=== PATIENT | male | born 1960 | race Caucasian/White ===

== ENCOUNTER 2016-12-08 05:21 | Observation (INO) | payer MEDICARE, OTHER ==
[2016-11-26 16:29] VITALS: BMI 29.0
[~2016-12-08] VITALS: Ht 170.2 cm; Wt 86.4 kg
[2016-12-08] VITALS (15 sets, daily range): BP systolic 115–145; BP diastolic 70–89; PULSE 54–95; TEMP 36.3–36.7; O2SAT 97–100; Ht 170.2 cm; Wt 86.4 kg
[~2016-12-08 05:21] MED LIST: CHOL1000 PO; MISCCAP80 PO; POTA99TA PO; VITA400C3 PO
[2016-12-08] MEDS ORDERED: PHEN-905 PO (05:46)
[2016-12-08] MEDS ORDERED: LACTATED RINGER'S 1000ML 1,000 ML IV SCH (06:00)
[2016-12-08] MEDS ORDERED: CeleBREX 200 MG CAP PO SCH (06:00)
[2016-12-08] MEDS ORDERED: CEFAZOLIN 2000 MG/60 ML D5W IV SCH (06:00)
[2016-12-08] MEDS ORDERED: PREGABALIN 75 MG CAP PO SCH (06:00)
[2016-12-08] MEDS ORDERED: REMIFENTANIL 1 MG VIAL ONE ×2 (06:34→06:35)
[2016-12-08] MEDS ORDERED: PROPOFOL IV EMULSION 10 MG/ML 100 ML VIAL IV ONE (06:35)
[2016-12-08] MEDS ORDERED: MIDAZOLAM HCL 1 MG/ML 2ML VIAL ONE (06:47)
[2016-12-08] MEDS ORDERED: FENTANYL CITRATE INJ 50 MCG/1 ML 2 ML VIAL ONE ×4 (06:47→10:33)
[2016-12-08] MEDS ORDERED: SUCCINYLCHOLINE CHLORIDE 20 MG/ML 10 ML VIAL IV ONE (06:47)
[2016-12-08] MEDS ORDERED: ONDANSETRON INJ 2 MG/ML 2 ML VIAL ONE (06:47)
[2016-12-08] MEDS ORDERED: DEXAMETHASONE SOD INJ 4 MG/ML VIAL ONE (06:47)
[2016-12-08] MEDS ORDERED: LIDOCAINE HCL 2% 2 ML VIAL (20MG/ML) ONE (06:47)
[2016-12-08] MEDS ORDERED: PROPOFOL IV EMULSION 10 MG/ML 20 ML VIAL IV ONE (06:47)
[2016-12-08] MEDS ORDERED: THROMBIN 5000 UNITS KIT ONE (06:51)
[2016-12-08] MEDS ORDERED: BACITRACIN 50000 UNIT VIAL ONE (06:51)
--- NOTE | 2016-12-08 07:20 | History and Physical ---
History & Physical Date Dec 08, 2016. Chief Complaint neck and L shoulder pain History of Present Illness The patient is a 56 year old male with complaints of above with numbness in left hand, balance disturbance, and symptoms of an early myelopathy that have been progressive. His MRI cspine demonstrated cervical stenosis with myelomalacia C4-7. He desires surgery. Past Medical/Surgical History HTN hi chol OA reflux hernia repair tonsillectomy Additional History Hepatic Disease: No Endocrine Disorder: No Kidney Disease: No Hypertension: Yes Heart Disease: No Bleeding Tendencies: No Infectious Diseases: No Allergies Coded Allergies: Calcium Carbonate (Verified Allergy, Intermediate, rash; pt believes it may be 'color related', 12/08/16) Metoclopramide (Verified Allergy, Mild, HIVES, 12/08/16) Rosuvastatin (Verified Adverse Reaction, Intermediate, joint pain, 12/08/16) Home Medications Scheduled Cholecalciferol (Vitamin D3), 2 TAB PO HS Yhgvexdfiiujh-Anaktymtdz-Cdjjd (Nyquil Severe Cold/Flu 5-6.25-10-325 mg/15Ml), 1 DOSE PO HS Potassium (Potassium), 1 TAB PO HS Probiotic Product (Probiotic), 1 CAP PO HS Vitamin E (Vitamin E 400 Iu), 400 INTER.UNIT PO HS Physical Examination Skin: warm/dry Eyes: normal inspection ENT: normal ENT inspection, pharynx normal Head: normocephalic, atraumatic Neck: supple, trachea midline Respiratory/Chest: lungs clear, no respiratory distress Cardiovascular: regular rate, rhythm Back: normal inspection Extremities: normal inspection, normal range of motion Neurologic/Psych: no motor/sensory deficits (decreased sensation L hand), alert , normal reflexes, oriented x 3
[2016-12-08] MEDS ORDERED: THROMBIN 5000 UNITS KIT TOP ONE (08:25)
[2016-12-08] MEDS ORDERED: FLOSEAL HEMOSTATIC MATRIX 5ML TOP ONE (08:25)
[2016-12-08] MEDS ORDERED: BACITRACIN 50000 UNIT VIAL IR ONE (08:25)
[2016-12-08] MEDS ORDERED: EpHEDrine SULFATE 50MG/5ML SYR ONE (08:30)
[2016-12-08] MEDS ORDERED: HYDROmorphone INJ 1 MG/ML SYR IV PRN (09:30)
[2016-12-08] MEDS ORDERED: ATROPINE SULFATE 0.1 MG/ML 5ML SYR IV PRN (09:30)
[2016-12-08] MEDS ORDERED: FENTANYL CITRATE INJ 50 MCG/1 ML 2 ML VIAL IV PRN (09:30)
[2016-12-08] MEDS ORDERED: ONDANSETRON INJ 2 MG/ML 2 ML VIAL IV PRN ×2 (09:30→10:00)
[2016-12-08] MEDS ORDERED: EpHEDrine SULFATE INJ 50 MG/ML AMP IV PRN (09:30)
--- NOTE | 2016-12-08 09:51 | [facility] Post Operative Brief Note ---
Immediate Operative Summary Operative Date Dec 08, 2016. Pre-Operative Diagnosis SPINAL STENOSIS Post-Operative Diagnosis SAME PREOP Procedure(s) Performed C4-7 ANTERIOR CERVICAL DISCECTOMY AND FUSION , WITH ALLOGRAFT AND LDR, SPINAL CORD MONITORING Surgeon DR. Sofia BLAKE Hop Picker Surgeon(s) Mayi GUERRERO PAC Estimated Blood Loss 100ml Findings dict Specimens NONE
[2016-12-08] MEDS ORDERED: ACETAMINOPHEN IV 1,000 MG in EMPTY BAG 0 ML IV PRN (10:00)
[2016-12-08] MEDS ORDERED: DEXAMETHASONE INJ 8 MG in SYRINGE 0 ML IV PRN (10:00)
[2016-12-08] MEDS ORDERED: RACEPINEPHRINE 2.25% NEBU SOLN 0.5 ML VIAL INH PRN (10:00)
[2016-12-08] MEDS ORDERED: NALOXONE HCL 0.4 MG/1 ML VIAL/CARP IV PRN (10:00)
[2016-12-08] MEDS ORDERED: LORAZEPAM INJ 0.5 MG in SYRINGE 0.75 ML IV PRN (10:00)
[2016-12-08] MEDS ORDERED: LORAZEPAM 0.5 MG TAB PO PRN (10:00)
[2016-12-08] MEDS ORDERED: OXYC-57 PO (10:01)
--- NOTE | 2016-12-08 10:02 | Discharge Instructions ---
Discharge Instructions Admission Reason for Admission: Cervical Spinal Stenosis Discharge Discharge Diagnosis / Problem: Cervical Stenosis Discharge Goals Goal(s): Decrease discomfort, Improve function, Increase independence Activity Recommendations Activity Limitations: as noted below Lifting Limitations: no more than 5 pounds Exercise/Sports Limitations: until after follow-up appointment May Resume Sexual Activity: after follow-up appointment Shower/Bathe: may shower/bathe in 3 days . Instructions / Follow-Up Instructions / Follow-Up ACTIVITY RECOMMENDATIONS: SELF CARE INSTRUCTIONS AFTER CERVICAL FUSIONS 1. No smoking. Smoking drastically decreases the chance of a solid fusion. 2. No bending, lifting more than 5 pounds, or twisting (roll like a log when turning in bed). 3. You may shower 3 days after surgery. Thoroughly dry wound. Do not soak in the tub. 4. Cervical collar: Must be worn at all times including sleeping. You may remove the brace only to bath, eat and if you are sitting in a recliner. 5. Please walk as much as you can for exercise. Gradually increase the distance that you walk as your endurance increases. SPECIAL CARE INSTRUCTIONS: VERY IMPORTANT TO READ AND REVIEW A. Do not take any anti-inflammatory medications (i.e. Indocin, Advil, Aspirin, Naprosyn, Aleve, Motrin, etc.) as these may inhibit the chance of a solid fusion. Tylenol is okay to take. B. Your surgical incision has been closed with a cosmetic suture under the skin that will dissolve in about 6 weeks. In 14 days, you can use a pair of clean scissors and cut the suture that is left outside of the skin at the ends of your incision. C. Complications are uncommon, but please contact us if you have any signs or symptoms of: 1. wound infection (fever higher than 102.5 degrees F, redness, separation of wound, drainage, or increasing pain from the incision) 2. blood clots in legs (pain, swelling, redness and warmth in legs) 3. urinary tract infection (fever higher than 102.5 degrees, burning upon urination or increased frequency of urination) 4. nerve problems (inability to walk on your toes or heels, numbness, loss of bowel or bladder control) 5. any other symptoms that concern you. D. Please call the office at if you have any concerns or questions about your operation or recovery. MANAGING PAIN AFTER SPINAL SURGERY 1. Narcotic medication is intended for short-term use and will be provided for surgical pain. Surgical pain usually lasts for a period of 4-6 weeks. Narcotic medication includes Percocet, Vicodin, Darvocet, Tylenol #3 or Lortab. 2. Longer-term pain is more appropriately treated with non-narcotic medication such as Tylenol ES. 3. Muscle spasm is not appropriately treated with narcotics. Muscle relaxers such as Soma, Flexeril or Skelaxin can be used along with Tylenol ES. 4. Remember that we all live with some "aches and pains". This is not unusual or uncommon after an injury or as we get older. 5. We will provide appropriate medication within the normal guidelines of their prescribed use. We will also be very cautious and aware of potential abuse and extended duration of patients' medication needs. 6. Please allow 2-3 days to process refills. Prescriptions will not be mailed but must be picked up at the office. FOLLOW UP VISIT: Keep your scheduled follow-up appointment. Any questions, please call the office at . Current Hospital Diet Patient's current hospital diet: Clear Liquid Diet Discharge Diet Recommended Diet: Regular Diet Procedures Procedures Performed: C4-7 ANTERIOR CERVICAL DISCECTOMY AND FUSION , WITH ALLOGRAFT AND LDR, SPINAL CORD MONITORING Pending Studies Studies pending at discharge: no Medical Emergencies . Who to Call and When: Medical Emergencies: If at any time you feel your situation is an emergency, please call 911 immediately. . Non-Emergent Contact Non-Emergency issues call your: Surgeon Call Non-Emergent contact if: temperature is above 101, your pain is not controlled, your pain is worsening, your pain is unusual for you, your pain is concerning you, wound has increased drainage, wound has increased redness, wound has increased pain, you have any medication questions . "Provider Documentation" section prepared by Chance Martinez. VTE Core Measure Inpt VTE Proph given/why not?: Vahid Morton
--- NOTE | 2016-12-08 10:14 | DIAGNOSTIC IMAGING REPORT ---
INTRAOPERATIVE RADIOGRAPHS CLINICAL HISTORY: C4-C7 spinal fusion. Fluoroscopy time: 17 seconds. FINDINGS: 5 spot fluoroscopic views of the cervical spine are presented. An endotracheal tube is in place. There is evidence of discectomy at C4-C5 and C5-C6 with anterior fusion at C4-C5, C5-C6, and C6-C7. The orthopedic hardware is grossly intact. A surgical drain is noted on the final images. IMPRESSION: Intraoperative images from C4 -C7 spinal fusion as above. Electronically signed by: Kal Perez M.D. 12/08/2016 10:12 AM Dictated Date/Time: 12/08/2016 10:11 AM
[2016-12-08] MEDS ORDERED: PHENYLEPHRINE 100MCG/ML 5ML SYR ONE (10:31)
[2016-12-08] MEDS ORDERED: NURSING VERBAL MED ORDER ONE (10:40)
[2016-12-08] MEDS ORDERED: MEPERIDINE HCL 25 MG/ML CARP ONE (10:46)
--- NOTE | 2016-12-08 11:39 | OPERATIVE REPORT ---
DATE OF OPERATION: 12/08/2016 PREOPERATIVE DIAGNOSES: 1. Cervical stenosis C4-C5, C5-C6 and C6-C7. 2. Cervical disk degeneration C4-C5, C5-C6 and C6-C7. 3. Cervical myelopathy. POSTOPERATIVE DIAGNOSIS: Same. PROCEDURES: 1. Anterior cervical discectomy and fusion and application of PEEK intervertebral spacer with local autograft and DBM putty C4-C5 with LDR GALLITO-C cage. 2. Anterior cervical discectomy and fusion with application of PEEK intervertebral spacer with local autograft and DBM putty C5-C6. 3. Anterior cervical discectomy and fusion and application of PEEK intervertebral spacer with local autograft and DBM putty C6-C7. 4. Anterior cervical instrumentation C4-C5, C5-C6 and C6-C7 with LDR anterior cervical blade placed. SURGEON: Dr. Rock. ARCHITECTURE INTERN: Chance Martinez PA-C. Please note he participated in all portions of the procedure and was critical for performance of the procedure, participated with positioning, prepping, draping, retraction, and wound closure. ANESTHESIA: General endotracheal anesthesia. COMPLICATIONS: None. ESTIMATED BLOOD LOSS: Minimal. OPERATION AND FINDINGS: PROCEDURE: After identification of patient and operative level, he was brought to the OR where he underwent induction of general anesthesia. He was then positioned supine on the [facility] OR table with Vasile horseshoe drapery head former. Arms tucked at sides and well padded. Shoulders were taped distally. Anterior neck was sterilely prepped and draped in usual fashion. Antibiotics were administered. Time-out was performed. Level was confirmed and transverse skin incision was made on the right side of the neck at the level of the cricoid cartilage. I divided the platysma in line with the incision and then performed routine anterior cervical exposure from the right side. Blunt dissection was used. I identified presumptive disc spaces and marked them with electrocautery and fluoroscopy. I then mobilized longus colli and placed a self-retaining cervical retractor deep to them. Bluff pins were placed in the body of C5 and C7. Distraction was applied across the pins and level was reconfirmed with x-ray. Spinal cord monitoring signals were not changed from baseline. I then did complete discectomies at C5-C6 and C6-C7, taking down the posterior osteophytes with a mary grace, removing the posterior annulus at the PLL and performed foraminotomies as necessary. I did a wide decompression and palpated the nerve roots C5-C6 and C6-C7 were decompressed bilaterally. I then decorticated the endplates with a high speed mary grace at C5-C6, C6-C7, determined graft size with trial sizers and inserted an LDR PEEK cage with local bone and DBM putty. There were tamped into position and Bluff distraction was released. I then placed the blades into the bodies of C6 from each level. I removed the Bluff distraction pins at C7 and then finished placing the blades at C5-C6 and C6-C7. I removed the insertion handles and then removed the self-retaining cervical retractor and placed Bluff pins in the body of C4 and C5. I then did a complete discectomy at this level. I removed the posterior osteophytes, posterior annulus, PLL and confirmed nerve roots decompressed and then decorticated the endplates with a high speed. I determined graft size again with trial sizers and filled the PEEK cage with local bone and DBM putty, tamped it into position and placed the blade plates into the bodies of C4 and C5. I then obtained final x-rays, irrigated with bacitracin solution, confirmed hemostasis and closed over a small round drain in layered fashion. All sponge and needle counts were correct at the end of the case. I attest to the content of the Intraoperative Record and any orders documented therein. Any exceptio ns are noted below.
--- NOTE | 2016-12-08 11:45 | Anesthesiology Progress Note ---
Anesthesia Post Op Note Date & Time Dec 08, 2016 at 11:45 Vital Signs Pain Intensity: 4 Vital Signs Past 12 Hours Date Time Temp Pulse Resp B/P Pulse Ox O2 Delivery O2 Flow Rate FiO2 12/08/16 11:33 133/97 12/08/16 11:32 71 17 98 12/08/16 11:32 71 17 12/08/16 11:29 122/91 12/08/16 11:27 71 17 12/08/16 11:27 73 17 99 12/08/16 11:23 117/83 12/08/16 11:22 60 5 12/08/16 11:22 59 5 99 12/08/16 11:21 71 16 12/08/16 11:21 72 16 97 12/08/16 11:19 117/78 12/08/16 11:16 64 13 12/08/16 11:16 67 13 99 12/08/16 11:13 128/81 12/08/16 11:11 53 12 99 12/08/16 11:11 55 12 12/08/16 11:10 119/86 12/08/16 11:08 53/46 12/08/16 11:06 62 16 12/08/16 11:06 69 16 98 12/08/16 11:05 74 13 99 12/08/16 11:05 75 13 12/08/16 11:04 116/77 12/08/16 11:00 61 12 100 12/08/16 11:00 61 12 12/08/16 10:59 123/73 12/08/16 10:55 71 20 100 12/08/16 10:55 70 20 12/08/16 10:54 113/76 12/08/16 10:53 106/77 12/08/16 10:50 69 14 100 12/08/16 10:50 69 14 12/08/16 10:49 106/77 12/08/16 10:45 89 21 97/88 100 12/08/16 10:45 86 21 12/08/16 10:40 80 22 100 12/08/16 10:40 79 22 12/08/16 10:38 100/72 12/08/16 10:35 88 15 12/08/16 10:35 88 15 100 12/08/16 10:33 123/67 12/08/16 10:30 79 16 102/73 100 2/7/17 10:30 81 16 12/08/16 10:25 89 16 98 12/08/16 10:25 36.2 88 16 120/89 100 Mask 10 12/08/16 10:25 90 16 12/08/16 05:51 36.5 54 18 130/89 98 Room Air Notes Mental Status: alert / awake / arousable, participated in evaluation Pt Amnestic to Procedure: Yes Nausea / Vomiting: adequately controlled Pain: adequately controlled Airway Patency, RR, SpO2: stable & adequate BP & HR: stable & adequate Hydration State: stable & adequate Anesthetic Complications: no major complications apparent
[2016-12-08] MEDS ORDERED: DiphenhydrAMINE HCL 50 MG/ML VIAL ONE (11:54)
[2016-12-08] MEDS ORDERED: RANITIDINE HCL 25 MG/ML INJ ONE (11:54)
[2016-12-08] MEDS: SODIUM CHLORIDE 0.9% 1000ML 1,000 ML IV SCH (13:20)
[2016-12-08] MEDS: OXYCODONE HCL IR 5 MG TAB (IMMEDIATE RELEASE) PO PRN ×3 (13:21→20:25)
[2016-12-08] MEDS ORDERED: IV FLUIDS COMPLETED PRN (13:45)
[2016-12-08] MEDS ORDERED: SCOPOLAMINE 1.5 MG TDSY TD SCH (14:00)
[2016-12-08] MEDS ORDERED: COUGH DROP (SUGAR FREE) LOZ 24 LOZ/1 BOX ONE (15:49)
[2016-12-08] MEDS: CHECK SCOPOLAMINE PATCH PLACEMENT SCH (15:56)
[2016-12-08] MEDS: DEXAMETHASONE INJ 6 MG in SYRINGE 0 ML IV SCH (15:57)
[2016-12-08] MEDS ORDERED: NURSING DECISION MEDICATION ORDER SCH (16:00)
[2016-12-08] MEDS: CEFAZOLIN IV 1,000 MG in DEXTROSE 5% 50ML 50 ML IV SCH (16:00)
[2016-12-08] MEDS ORDERED: COUGH DROP (SUGAR FREE) LOZ 24 LOZ/1 BOX PO PRN (16:00)
[2016-12-08] MEDS: HYDROmorphone INJ 1 MG/ML SYR IV PRN (21:43)
[2016-12-09] VITALS (10 sets, daily range): BP systolic 109–132; BP diastolic 68–79; PULSE 52–69; TEMP 36.4–36.6; O2SAT 97–100
[2016-12-09] MEDS: SODIUM CHLORIDE 0.9% 1000ML 1,000 ML IV SCH (00:16)
[2016-12-09] MEDS: DEXAMETHASONE INJ 6 MG in SYRINGE 0 ML IV SCH ×2 (00:16→08:03)
[2016-12-09] MEDS: CEFAZOLIN IV 1,000 MG in DEXTROSE 5% 50ML 50 ML IV SCH ×2 (00:17→08:03)
[2016-12-09] MEDS: HYDROmorphone INJ 1 MG/ML SYR IV PRN (01:42)
[2016-12-09] MEDS: OXYCODONE HCL IR 5 MG TAB (IMMEDIATE RELEASE) PO PRN ×2 (06:22→11:42)
[2016-12-09] MEDS: CHECK SCOPOLAMINE PATCH PLACEMENT SCH ×2 (08:00)
--- NOTE | 2016-12-09 09:39 | Orthopedic Progress Note ---
Orthopedic Progress Note Date of Service Dec 09, 2016. Subjective Reports: feeling well, pain controlled w PO medications, Denies: SOB, calf pain , chest pain, complaints, light headedness, nausea / vomiting Additional Notes: Doing well, no SOB or difficulty swallowing, resolution of numbness noted, no arm pain Objective calves soft nontender, N/V intact, capillary refill less than 2 sec., dressing C /D/I, A&O x3, toes mobile, hemovac drainage Date Time Temp Pulse Resp B/P Pulse Ox O2 Delivery O2 Flow Rate FiO2 12/09/16 07:43 60 16 98 Room Air 12/09/16 07:25 36.5 62 14 117/73 98 Room Air 12/09/16 07:00 Room Air 12/09/16 06:25 36.5 61 20 132/76 99 Room Air 12/09/16 04:26 36.6 66 20 118/75 100 Nasal Cannula 2.0 Humidified Oxygen 12/09/16 03:50 52 14 97 Nasal Cannula 2.0 12/09/16 02:13 36.4 60 20 129/79 99 Nasal Cannula 2.0 Humidified Oxygen 12/09/16 00:20 36.5 69 18 109/68 99 Nasal Cannula 2.0 Humidified Oxygen 12/08/16 23:47 58 14 97 Nasal Cannula 2.0 12/08/16 22:25 36.4 62 20 130/81 99 Nasal Cannula 2.0 Humidified Oxygen 12/08/16 21:21 36.5 71 18 116/78 98 Nasal Cannula 2.0 12/08/16 20:00 36.5 68 18 135/72 99 Nasal Cannula 2.0 Humidified Oxygen 12/08/16 20:00 Nasal Cannula 2.0 Humidified Oxygen 12/08/16 19:58 78 16 97 Room Air 12/08/16 19:23 36.6 68 18 145/78 98 Nasal Cannula 3.0 12/08/16 17:07 36.6 74 18 131/83 99 Nasal Cannula 3.0 12/08/16 15:40 82 14 100 Nasal Cannula 3.0 12/08/16 15:08 36.3 73 18 120/84 99 Nasal Cannula 3.0 12/08/16 14:35 87 16 99 Nasal Cannula 4.0 12/08/16 14:15 71 14 115/80 100 Nasal Cannula 4.0 Humidified Oxygen 12/08/16 13:17 95 16 135/83 99 Nasal Cannula 4.0 12/08/16 12:43 80 18 116/76 98 Nasal Cannula 4.0 Humidified Oxygen 12/08/16 12:10 Nasal Cannula 4.0 12/08/16 12:10 36.7 58 18 124/70 99 Nasal Cannula 4.0 12/08/16 12:10 99 Nasal Cannula 4.0 12/08/16 11:49 63 15 12/08/16 11:49 62 15 97 12/08/16 11:48 118/80 12/08/16 11:44 54 16 12/08/16 11:44 53 16 99 12/08/16 11:43 123/84 12/08/16 11:39 67 18 12/08/16 11:39 67 18 98 12/08/16 11:38 133/92 12/08/16 11:34 72 16 12/08/16 11:34 71 16 98 12/08/16 11:33 133/97 12/08/16 11:32 71 17 98 12/08/16 11:32 71 17 12/08/16 11:29 122/91 12/08/16 11:27 71 17 12/08/16 11:27 73 17 99 12/08/16 11:23 117/83 12/08/16 11:22 60 5 12/08/16 11:22 59 5 99 12/08/16 11:21 71 16 12/08/16 11:21 72 16 97 12/08/16 11:19 117/78 12/08/16 11:16 64 13 12/08/16 11:16 67 13 99 12/08/16 11:13 128/81 12/08/16 11:11 53 12 99 12/08/16 11:11 55 12 12/08/16 11:10 119/86 12/08/16 11:08 53/46 12/08/16 11:06 62 16 12/08/16 11:06 69 16 98 12/08/16 11:05 74 13 99 12/08/16 11:05 75 13 12/08/16 11:04 116/77 12/08/16 11:00 61 12 100 12/08/16 11:00 61 12 12/08/16 10:59 123/73 12/08/16 10:55 71 20 100 12/08/16 10:55 70 20 12/08/16 10:54 113/76 12/08/16 10:53 106/77 12/08/16 10:50 69 14 100 12/08/16 10:50 69 14 12/08/16 10:49 106/77 12/08/16 10:45 89 21 97/88 100 12/08/16 10:45 86 21 12/08/16 10:40 80 22 100 12/08/16 10:40 79 22 12/08/16 10:38 100/72 12/08/16 10:35 88 15 12/08/16 10:35 88 15 100 12/08/16 10:33 123/67 12/08/16 10:30 79 16 102/73 100 12/08/16 10:30 81 16 12/08/16 10:25 89 16 98 12/08/16 10:25 36.2 88 16 120/89 100 Mask 10 12/08/16 10:25 90 16 Assessment & Plan Assessment: s/p cervical fusion Plan: Progress diet, change dressing and d/c drain then discharge home
--- NOTE | 2016-12-18 09:11 | DISCHARGE SUMMARY ---
PRINCIPAL DIAGNOSES: Cervical stenosis C4-C5, C5-C6, C6-C7 with disc degeneration at these associated levels and cervical myelopathy. POSTOPERATIVE DIAGNOSES: Same. PROCEDURE: Cervical ACDF C4-C7. SURGEON: Dr. Ebenezer Rock. COOPERATIVE EDUCATION DIRECTOR: Chance Martinez PA-C. HISTORY OF PRESENT ILLNESS: Please refer to EMR. HOSPITAL COURSE: On 12/08/2016, Mr. Wolfe was admitted to [facility] with the above diagnoses and he was taken to preoperative holding where he was identified, evaluated, and cleared for surgical procedure. He was transported to the operating room, introduced with general endotracheal anesthesia. Sterile conditions were set and he successfully underwent the above procedure without complication or issue. He was awakened in stable and satisfactory condition, placed in a hard collar immobilization, transported to postoperative recovery where his vital signs and pain were monitored and managed. He remained medically stable and was taken to the orthopedic floor for continued postoperative care. Throughout the night, he had no difficulty breathing or swallowing. He remained in immobilization and KAYDEN remained functioning. He noted resolution of preoperative symptoms. He had no difficulties or postoperative complications. He was evaluated the next morning on 12/09/2016 and indicated for return home. On this date, he was discharged from [facility]. DISPOSITION: Home. DISPOSITION CONDITION: Stable. NOTED COMPLICATIONS OR ISSUES: Zero. DISCHARGE INSTRUCTIONS: Please refer to EMR.
== END 2016-12-09 12:21 | disposition home or self-care (01) ==
LOC: ENRESERVDT → ENRESERVTM → C.ACU 05:21 → C.3E 09:53
PROVIDERS: ADMIT Orthopaedic Surgery Orthopaedic Surgery of the Spine; ATTEND Orthopaedic Surgery Orthopaedic Surgery of the Spine
DX: M50.021 Cervical disc disorder at C4-C5 level with myelopathy (principal); M50.022 Cervical disc disorder at C5-C6 level with myelopathy; M50.023 Cervical disc disorder at C6-C7 level with myelopathy; I10 Essential (primary) hypertension; E78.00 Pure hypercholesterolemia, unspecified; K21.9 Gastro-esophageal reflux disease without esophagitis; M19.90 Unspecified osteoarthritis, unspecified site

== ENCOUNTER 2022-12-29 06:49 | Inpatient (IN) ==
--- NOTE | 2022-12-10 10:19 | PAT Medication Instructions ---
Medication Instructions Date of Service December 10, 2022 Home Medications betamethasone dipropionate 0.05 % topical cream 1 applic topical BID PRN sores calcium 600 mg capsule 600 mg PO QAM cholecalciferol (vitamin D3) 125 mcg (5,000 unit) tablet (Vitamin D3) 125 mcg PO QAM lisinopril 20 mg tablet 20 mg PO QAM loperamide 2 mg capsule 2 mg PO Q4H PRN diarrhea magnesium 200 mg tablet 600 mg PO QAM potassium 99 mg tablet 99 mg PO QAM sertraline 100 mg tablet 100 mg PO HS zinc 50 mg tablet 50 mg PO DAILY STOP taking 24 hours before surgery betamethasone dipropionate 0.05 % topical cream 1 applic topical BID PRN sores DO NOT take the morning of surgery calcium 600 mg capsule 600 mg PO QAM cholecalciferol (vitamin D3) 125 mcg (5,000 unit) tablet (Vitamin D3) 125 mcg PO QAM lisinopril 20 mg tablet 20 mg PO QAM loperamide 2 mg capsule 2 mg PO Q4H PRN diarhea magnesium 200 mg tablet 600 mg PO QAM potassium 99 mg tablet 99 mg PO QAM zinc 50 mg tablet 50 mg PO DAILY Take evening before surgery loperamide 2 mg capsule 2 mg PO Q4H PRN diarrhea (if needed) sertraline 100 mg tablet 100 mg PO HS Other Notes If you have any questions please call us at [phone] or [phone] or [phone] or [phone]
--- NOTE | 2022-12-15 12:00 | Anesthesiology Consultation ---
Date of Service December 15, 2022 Assessment & Plan (1) Encounter for pre-operative examination: COVID screening: Per assessment on 12/15: No known COVID-19 positive contacts or current COVID-19 related symptoms. Travel screen negative. At surgeon discretion if preop Covid testing being done. Chart Review Chart Review: Acceptable Risk for Surgery and Patient seen in Pre Admission Testing History Surgery Operation Date: 12/29/22 12:55 Proposed Procedures p C3-C4 Anterior Cervical Discectomy and Fusion, Spinal Cord Monitoring - Herve Wolfe DO Height/Weight Height: 5 ft 8 in Weight: 98.5 kg Allergies Allergy/AdvReac Type Severity Reaction Status Date / Time calcium carbonate Allergy Intermediate RASH Verified 12/15/22 12:14 metoclopramide Allergy Mild HIVES Verified 12/09/22 13:05 red dye Allergy RASH Verified 12/15/22 12:14 (POSSIBLY R/T RED DYE) rosuvastatin AdvReac Intermediate JOINT PAIN Verified 12/15/22 12:00 Medications Home Medications Medication Instructions Recorded Confirmed Last Taken betamethasone dipropionate 0.05 % 1 applic topical BID PRN sores. 12/09/22 12/09/22 Unknown topical cream calcium 600 mg capsule 600 mg PO QAM 12/09/22 12/09/22 Unknown cholecalciferol (vitamin D3) 125 125 mcg PO QAM 12/09/22 12/09/22 Unknown mcg (5,000 unit) tablet (Vitamin D3) lisinopril 20 mg tablet 20 mg PO QAM 12/09/22 12/09/22 Unknown loperamide 2 mg capsule 2 mg PO Q4H PRN diarhea 12/09/22 12/09/22 Unknown magnesium 200 mg tablet 600 mg PO QAM 12/09/22 12/09/22 Unknown potassium 99 mg tablet 99 mg PO QAM 12/09/22 12/09/22 Unknown sertraline 100 mg tablet 100 mg PO HS 12/09/22 12/09/22 Unknown zinc 50 mg tablet 50 mg PO DAILY 12/09/22 12/09/22 Unknown Past Medical History Medical History Anxiety Chronic back pain DDD (degenerative disc disease), cervical Hypertension IBS (irritable bowel syndrome) Osteoarthritis Exercise / Class Metabolic Activity III < 4 Walking/Shop/Light housework Past Surgical History Surgical History History of nasal surgery History of tonsillectomy and adenoidectomy Hx of appendectomy Hx of cardiac cath 20+ years ago (in [place])- no significant findings, told symptoms r/t anxiety Hx of colonoscopy Hx of fusion of cervical spine C4-7 Hx of umbilical hernia repair Past Anesthesia History No Hx of Anesthesia Complications and No Family Hx of Anesthesia Complications History of PONV No Hx of PONV and No Hx of Motion Sickness Social History Smoking Status: Current some day smoker Smoking cigarettes per day: Occasional use with ETOH Do You Dip or Chew Tobacco: Yes (2/3 can a day- advised none DOS) Hx Alcohol Use: Yes Alcohol type: beer alcohol intake frequency: a few times a week Hx Substance Use: Yes Substance Use Type Other:: Cannibis occasional use Review of Systems Patient denies chest pain, shortness of breath, fever, chills, cough, wheezing, palpitations. Physical Exam Vital Signs VITALS BP 162/94 P 63 TEMP 98.1 SP02 98%RA RESP 16 PHYSICAL Significantly decreased cervical extension range of motion. Full TMJ range of motion. TMD 3.5 finger breaths Mallampati Score 2 Dentition: several missing sides/molars Lungs: clear throughout to auscultation Cardiac: regular rate and rhythm, no murmurs noted Spine: normal Carotid arteries: negative bruit Extremities: no edema Lab Results Anesthesia Preop Results Results Anesthesia Widget: WBC 5.98 K/ul (4.8-10.8) 12/15/22 Hgb 14.3 g/dl (14.0-18.0) 12/15/22 Hct 40.5 % (42.0-52.0) L 12/15/22 Plt 286 K/uL (130-400) 12/15/22 Na 141 mmol/L (136-145) 12/15/22 K 4.2 mmol/L (3.5-5.1) 12/15/22 Cl 108 mmol/L (98-107) H 12/15/22 CO2 28 mmol/L (21-32) 12/15/22 BUN 14 mg/dl (6-23) 12/15/22 Creat 0.89 mg/dl (0.6-1.4) 12/15/22 Glucose Level 92 mg/dl (70-99(Fasting)) 12/15/22 PT 11.4 Seconds (9.0-12.0) 12/15/22 PTT 28.4 Seconds (21.0-31.0) 12/15/22 INR 1.1 (0.9-1.1) 12/15/22 Urine Color Yellow 12/15/22 Urine Appearance Clear (Clear) 12/15/22 Urine pH 5.5 (4.5-7.5) 12/15/22 Urine Specific [place] 1.021 (1.000-1.030) 12/15/22 Urine Protein Negative (Negative) 12/15/22 Urine Glucose (UA) Negative (Negative) 12/15/22 Urine Ketones Negative (Negative) 12/15/22 Urine Blood Negative (Negative) 12/15/22 Urine Nitrite Negative (Negative) 12/15/22 Urine Bilirubin Negative (Negative) 12/15/22 Urine Urobilinogen Negative (Negative) 12/15/22 Urine Leukocyte Esterase Negative (Negative) 12/15/22 Blood Type A Positive 12/15/22 Antibody Screen NEGATIVE 12/15/22 Testing Electrocardiogram Date: 12/15/22 NSR at 63bpm. Chest X-Ray Date: 12/15/22 FINDINGS: No lines and tubes are seen. Calcified aortic knob is seen. The lungs are clear. No evidence of pleural effusion or pneumothorax. IMPRESSION: No acute chest disease. COVID-19 Risk Screen Screening Information COVID-19 Screen Date: 12/15/22 Exposure 21 Days Family/Household +COVID Last 21 Days: No Exposure 10 Days Any COVID Exposure Last 10 Days: No Symptoms Last 10 Days Experienced COVID Sx Last 10 Days: No + COVID 0-90 Days COVID + in Last 0-90 Days: No
[~2022-12-29 06:49] MED LIST changes: +ACETAMINOPHEN 500 MG TAB PO SCH; -CHOL1000 PO; +CeleBREX 200 MG CAP PO SCH; +GABAPENTIN 600 MG DOSE PO SCH; +LR 15ML/HR IV SCH; -MISCCAP80 PO; -POTA99TA PO; -VITA400C3 PO; +ceFAZolin 2000MG 2,000 MG/15 ML SYR IV SCH
[2022-12-29] MEDS ORDERED: fentaNYL citrate PF 100 MCG/2 ML VIAL ONE (07:08)
[2022-12-29] MEDS ORDERED: PROPOFOL IV EMULSION 10 MG/ML 20 ML VIAL IV ONE (07:08)
[2022-12-29] MEDS ORDERED: SUCCINYLCHOLINE CHLORIDE 20 MG/ML 10 ML VIAL IV ONE (07:08)
[2022-12-29] MEDS ORDERED: MIDAZOLAM HCL 1 MG/ML 2ML VIAL ONE (07:08)
[2022-12-29] MEDS ORDERED: DEXAMETHASONE SOD INJ 4 MG/ML VIAL ONE (07:08)
[2022-12-29] MEDS ORDERED: LIDOCAINE 2% MPF LOCAL 5 ML VIAL INFIL ONE (07:08)
[2022-12-29] MEDS ORDERED: PROPOFOL IV EMULSION 10 MG/ML 100 ML VIAL IV ONE (07:18)
--- NOTE | 2022-12-29 07:28 | History & Physical Bridge Note ---
Date of Service December 29, 2022 History & Physical Bridge Note I have examined the patient, reviewed the History & Physical and in the interval since the performance of the History & Physical I have noted the following changes of clinical significance: no changes noted
--- NOTE | 2022-12-29 07:29 | History & Physical Report ---
Date of Service December 29, 2022 Assessment & Plan (1) DDD (degenerative disc disease), cervical: Plan: Anterior cervical discectomy and fusion C3-C4 History of Present Illness Chief Complaint: Neck and arm pain Primary Care Provider: Kelly Valle MD This is a 62-year-old male with chronic persistent neck and arm symptoms with failed course of nonoperative care is here for surgical intervention. Allergies Allergy/AdvReac Type Severity Reaction Status Date / Time calcium carbonate Allergy Intermediate RASH Verified 12/29/22 07:06 metoclopramide Allergy Mild HIVES Verified 12/29/22 07:06 red dye Allergy RASH Verified 12/29/22 07:06 (POSSIBLY R/T RED DYE) rosuvastatin AdvReac Intermediate JOINT PAIN Verified 12/29/22 07:06 Home Medications Medication Instructions Recorded Confirmed Type betamethasone dipropionate 0.05 % 1 applic topical BID PRN sores. 12/09/22 12/29/22 History topical cream calcium 600 mg capsule 600 mg PO QAM 12/09/22 12/29/22 History cholecalciferol (vitamin D3) 125 125 mcg PO QAM 12/09/22 12/29/22 History mcg (5,000 unit) tablet (Vitamin D3) lisinopril 20 mg tablet 20 mg PO QAM 12/09/22 12/29/22 History loperamide 2 mg capsule 2 mg PO Q4H PRN diarhea 12/09/22 12/29/22 History magnesium 200 mg tablet 600 mg PO QAM 12/09/22 12/29/22 History potassium 99 mg tablet 99 mg PO QAM 12/09/22 12/29/22 History sertraline 100 mg tablet 100 mg PO HS 12/09/22 12/29/22 History zinc 50 mg tablet 50 mg PO DAILY 12/09/22 12/29/22 History Past Med/Surg History Medical History Anxiety Chronic back pain DDD (degenerative disc disease), cervical Hypertension IBS (irritable bowel syndrome) Osteoarthritis Surgical History History of nasal surgery History of tonsillectomy and adenoidectomy Hx of appendectomy Hx of cardiac cath 20+ years ago (in [place])- no significant findings, told symptoms r/t anxiety Hx of colonoscopy Hx of fusion of cervical spine C4-7 Hx of umbilical hernia repair Social History Smoking Status: Current some day smoker Cigarettes Per Day: Occasional use with ETOH; Second Hand Exposure: No; Do You Dip or Chew Tobacco: Yes (2/3 can a day- advised none DOS); Tobacco Cessation Education Requested by Patient: No Hx Alcohol Use: Yes Alcohol type: beer Hx Substance Use: Yes Substance Use Type Other:: Cannibis occasional use Preferred Language: Monegasque Communication Ability: Effective Alarm Signaler Required: No Beliefs That Will Affect Care: None Current Living Situation: Spouse Other Information That Helps Us Care for You: No Feels Safe at Home: Yes Safety Concerns: Feels Safe At This Time Physical Exam Physical Exam: Patient is alert and oriented Heart regular rhythm Lungs clear
[2022-12-29] MEDS ORDERED: ceFAZolin 330 MG/ML 1 GM VIAL ONE (07:31)
--- NOTE | 2022-12-29 07:53 | Anesthesiology Consultation ---
Date of Service December 29, 2022 Assessment & Plan Chart Review Chart Review: Acceptable Risk for Surgery and Patient NOT seen in Pre Admission Testing Consults Requested none ASA ASA3 Proposed Anesthesia Anesthesia Type: General Risk / Benefits Reviewed With: PT / POA / Parent / Guardian, Accepts Plan and Informed Consent Obtained History Surgery Operation Date: 12/29/22 07:45 Proposed Procedures p C3-C4 Anterior Cervical Discectomy and Fusion, Spinal Cord Monitoring - Herve Wolfe DO Height/Weight Height: 5 ft 7 in Weight: 98.571 kg Allergies Allergy/AdvReac Type Severity Reaction Status Date / Time calcium carbonate Allergy Intermediate RASH Verified 12/29/22 07:06 metoclopramide Allergy Mild HIVES Verified 12/29/22 07:06 red dye Allergy RASH Verified 12/29/22 07:06 (POSSIBLY R/T RED DYE) rosuvastatin AdvReac Intermediate JOINT PAIN Verified 12/29/22 07:06 Medications Home Medications Medication Instructions Recorded Confirmed Last Taken betamethasone dipropionate 0.05 % 1 applic topical BID PRN sores. 12/09/22 12/29/22 12/22/22 19:00 topical cream calcium 600 mg capsule 600 mg PO QAM 12/09/22 12/29/22 12/08/22 19:00 cholecalciferol (vitamin D3) 125 125 mcg PO QAM 12/09/22 12/29/22 12/08/22 19:00 mcg (5,000 unit) tablet (Vitamin D3) lisinopril 20 mg tablet 20 mg PO QAM 12/09/22 12/29/22 12/28/22 06:00 loperamide 2 mg capsule 2 mg PO Q4H PRN diarhea 12/09/22 12/29/22 12/26/22 08:00 magnesium 200 mg tablet 600 mg PO QAM 12/09/22 12/29/22 Unknown potassium 99 mg tablet 99 mg PO QAM 12/09/22 12/29/22 Unknown sertraline 100 mg tablet 100 mg PO HS 12/09/22 12/29/22 12/27/22 19:00 zinc 50 mg tablet 50 mg PO DAILY 12/09/22 12/29/22 Unknown Active Medications Generic Name Dose Route Start Last Admin Trade Name Freq PRN Reason Stop Dose Admin Acetaminophen 1,000 mg 12/29/22 06:00 12/29/22 07:37 Acetaminophen 500 Mg Tab PO 12/29/22 18:00 1,000 mg PREOP LUL Administration Celecoxib 200 mg 12/29/22 06:00 12/29/22 07:37 Celebrex 200 Mg Cap PO 12/29/22 18:00 200 mg PREOP LUL Administration Gabapentin 600 mg 12/29/22 06:00 12/29/22 07:36 Gabapentin 600 Mg Dose PO 12/29/22 18:00 600 mg PREOP LUL Administration NPO Date Last Intake of Fluids: 12/28/22 Time Last Intake of Fluids: 22:00 Date Last Intake of Solids: 12/28/22 Time Last Intake of Solids: 22:00 Past Medical History Medical History Anxiety Chronic back pain DDD (degenerative disc disease), cervical Hypertension IBS (irritable bowel syndrome) Osteoarthritis Exercise / Class Metabolic Activity II 4-5 Yardwork/Stairs/Walk up hill Past Surgical History Surgical History History of nasal surgery History of tonsillectomy and adenoidectomy Hx of appendectomy Hx of cardiac cath 20+ years ago (in [place])- no significant findings, told symptoms r/t anxiety Hx of colonoscopy Hx of fusion of cervical spine C4-7 Hx of umbilical hernia repair Past Anesthesia History No Hx of Anesthesia Complications and No Family Hx of Anesthesia Complications History of PONV No Hx of PONV and No Hx of Motion Sickness Social History Smoking Status: Current some day smoker Smoking cigarettes per day: Occasional use with ETOH Do You Dip or Chew Tobacco: Yes (2/3 can a day- advised none DOS) Hx Alcohol Use: Yes Alcohol type: beer alcohol intake frequency: a few times a week Hx Substance Use: Yes substance use type: does not use Substance Use Type Other:: Cannibis occasional use Physical Exam Vital Signs Last Vital Signs Temp 36.5 C 12/29/22 07:11 Pulse 60 12/29/22 07:11 Resp 22 12/29/22 07:11 BP 185/98 H 12/29/22 07:11 Pulse Ox 97 12/29/22 07:11 O2 Del Method Room Air 12/29/22 07:11 Constitutional + obese; no acute distress ENMT Mouth: no dentition abnormality Thyromental Distance: > or= 3.5 Finger Breadths Mallampati Class: II Neck normal visual inspection, trachea midline and + limited neck extension (limited extension) Respiratory normal respiratory effort Auscultation: lungs clear to auscultation bilaterally Cardiovascular Rate/Rhythm: regular rate and regular rhythm Heart Sounds: no murmur Vessels: no carotid bruit Musculoskeletal Spine: + limited cervical ROM and + pain with cervical ROM Extremities: extremities normal to inspection; full ROM of extremities Neurologic moves all extremities Motor/Sensory: no sensory deficit Psychiatric Orientation: alert and oriented x 3
[2022-12-29] MEDS ORDERED: PROMETHAZINE HCL 12.5 MG in SODIUM CHLORIDE 0.9% 50 ML IV PRN (07:55)
[2022-12-29] MEDS ORDERED: LABETALOL HCL IV 5 MG/ML 20ML IV PRN (07:55)
[2022-12-29] MEDS ORDERED: ONDANSETRON INJ 2 MG/ML 2 ML VIAL IV PRN (07:55)
[2022-12-29] MEDS ORDERED: ePHEDrine sulfate 50 MG/ML AMP IV PRN (07:55)
[2022-12-29] MEDS ORDERED: FLUMAZENIL 0.1 MG/1 ML 10 ML VIAL IV PRN (07:55)
[2022-12-29] MEDS ORDERED: NALOXONE HCL 0.4 MG/1 ML VIAL/CARP IV PRN (07:55)
[2022-12-29] MEDS ORDERED: HYDROmorphone INJ 1 MG/ML SYRINGE IV PRN (07:55)
[2022-12-29] MEDS ORDERED: ATROPINE SULFATE 0.1 MG/ML 10ML SYR IV PRN (07:55)
[2022-12-29] MEDS ORDERED: KETAMINE 50 MG/5 ML SYRINGE ONE (08:33)
[2022-12-29] MEDS ORDERED: FLOSEAL HEMOSTATIC MATRIX 10ML TOP ONE (09:03)
--- NOTE | 2022-12-29 09:24 | Operative Report ---
Post Operative Report Pre & Post Diagnosis Operation Date: 12/29/22 07:45 Pre-Op Diagnosis: Cervical spinal stenosis with myeloradiculopathy Post-Op Diagnosis: Same I identified the patient and participated in the time-out.: Yes Procedure Operation Date: 12/29/22 07:45 Actual Procedures #1 anterior cervical discectomy with bilateral foraminotomies C3-C4. #2 anterior cervical arthrodesis C3-C4. #3 placement of globus 7 mm coalition interbody cage filled with I factor. Surgeon Herve Wolfe, Flight Engineer Instructor Marilee Carbone Estimated Blood Loss 10 Findings Consistent with Post-Op Diagnosis Specimens None Indications Patient is here with evidence of cervical myeloradiculopathy after failing course of nonoperative care is here for surgical invention. Description of Procedure Patient was met with identified informed consent obtained. Patient was then taken to the operative suite underwent ablation placed in supine position jacks table head Galarza head char filter tank tender. All bony prominences well-padded eyes inspected to ensure no external pressure placed upon them. This point the anterior cervical spine was prepped and draped in normal sterile fashion. With the assistance of fluoroscopy identified the C3-C4 disc space and a transverse incision was placed along the right anterior aspect of the cervical spine overlying this region. Blunt dissection with assistance of bipolar electrocautery was performed down to and exposing the anterior cervical spine from C3-C4. Self-retaining retractors placed. I then performed a complete discectomy of C3-C4 out to the uncovertebral joints bilaterally. [place] distracting pins were utilized to assist in visualization. Removed all posterior annular fibers longitudinal ligament bilateral foraminotomies performed. Endplates burred to subcortical bleeding bone and a 7 mm coalition cage filled with I factor tapped in position and screwed into place with fluoroscopic visualization. The incision was then copiously irrigated explored to ensure no damage to surrounding structures or remaining bleeding. 10 round KAYDEN drain inserted. The incision was then closed with 2 Vicryl in a fashion of 4 Monocryl for final skin closure. Steri-Strip sterile dressings placed. Patient awakened taken to PACU in stable condition. Please note spinal cord monitoring was utilized at the procedure no changes noted. Lastly Marilee Carbone was present at the entire surgeon while the patient positioning complex portion of the surgery and final skin closure. I attest to the content of the Intraoperative Record and any orders documented therein. Any exceptions are noted below.
[2022-12-29] MEDS ORDERED: HYDROmorphone INJ 0.5 MG/0.5 ML SYR IV PRN (09:28)
[2022-12-29] MEDS: fentaNYL citrate PF 100 MCG/2 ML VIAL IV PRN ×4 (09:57→10:23)
--- NOTE | 2022-12-29 10:41 | Anesthesiology Progress Note ---
Date of Service December 29, 2022 Anesthesia Post Procedure Vital Signs Vital Signs: Temp Pulse Pulse Resp BP Pulse Ox O2 Del Method 12/29/22 10:25 58 L 12 145/88 H 99 Oxymask 12/29/22 10:15 55 L 12 149/97 H 99 Oxymask 12/29/22 10:05 58 L 17 169/100 H 99 Oxymask 12/29/22 09:55 65 18 142/96 H 95 Oxymask 12/29/22 09:45 67 17 114/80 94 Oxymask 12/29/22 09:37 35.7 C L 61 12 126/83 85 L Nasal Cannula 12/29/22 07:11 36.5 C 60 22 185/98 H 97 Room Air O2 Flow Rate 12/29/22 10:25 15 12/29/22 10:15 15 12/29/22 10:05 15 12/29/22 09:55 15 12/29/22 09:45 15 12/29/22 09:37 5 12/29/22 07:11 Pain Intensity Neck: Pain Intensity: 7 Transfer of Care Handoff Completed per policy Notes Mental Status: alert / awake / arousable Patient Amnestic to Procedure: Yes Nausea / Vomiting: adequately controlled Pain: adequately controlled Airway Patency, RR, SpO2: stable & adequate BP & HR: stable & adequate Hydration State: stable & adequate Anesthetic Complications: no major complications apparent
--- NOTE | 2022-12-29 10:46 | Fluoroscopy Report ---
FL cervical 2-3V CLINICAL HISTORY: ACDF C3-4 TECHNIQUE: 2 views were obtained with the C-arm in the OR with the above procedure. Total fluoroscopy time was 12.5 seconds. Radiation dose was 1.98 mGy. Comparison: Comparison is made to cervical spinal fluoroscopy 12/08/2016 FINDINGS/IMPRESSION: Intraoperative images were obtained of ACDF at C3-C4. Please correlate with intraoperative fluoroscopy and operative report. ACT 112: Negative or not required by law. Electronically signed by: Teddy Sharma M.D. 12/29/2022 10:44 AM
[2022-12-29] MEDS ORDERED: RACEPINEPHRINE 2.25% NEBU SOLN 0.5 ML VIAL INH PRN (11:22)
[2022-12-29] MEDS ORDERED: ACETAMINOPHEN 1,000 MG/100 ML VIAL IV PRN (11:22)
[2022-12-29] MEDS ORDERED: dexAMETHasone 8 MG in SYRINGE 0 ML IV PRN (11:22)
[2022-12-29] MEDS: oxyCODONE HCL IR 5 MG TAB (IMMEDIATE RELEASE) PO PRN ×3 (11:57→20:29)
[2022-12-29] MEDS: traMADol HCL 50 MG TABLET PO PRN (19:06)
[2022-12-29] MEDS ORDERED: SERTRALINE HCL 100 MG TABLET PO SCH (21:00)
[2022-12-30] MEDS: oxyCODONE HCL IR 5 MG TAB (IMMEDIATE RELEASE) PO PRN ×2 (00:57→06:23)
[2022-12-30 06:55] LABS: Basophils # (auto) 0.02 K/uL (0-0.2); Basophils % (auto) 0.2 %; Hematocrit (blood only) 38.9 % (42.0-52.0); Hemoglobin 13.4 g/dl (14.0-18.0); Immature Granulocytes # (auto) 0.05 K/uL (0.01-0.20); Immature Granulocytes % (auto) 0.4 %; Lymphocytes # (auto) 1.49 K/uL (1.2-3.4); Lymphocytes % (auto) 11.6 %; Mean Corpuscular Hemoglobin 32.7 pg (25.0-34.0); Mean Corpuscular Hgb Conc 34.4 g/dL (32.0-36.0); Mean Corpuscular Volume 94.9 fL (80.0-100.0); Mean Platelet Volume 9.6 fL (9.4-12.4); Monocytes # (auto) 0.98 K/uL (0.11-0.59); Monocytes % (auto) 7.6 %; Neutrophils # (auto) 10.33 K/uL (1.40-6.50); Neutrophils % (auto) 80.2 %; Platelet Count 265 K/uL (130-400); RDW Coefficient of Variation 11.9 % (11.5-14.5); RDW Standard Deviation 41.6 fL (36.4-46.3); White Blood Count 12.87 K/ul (4.8-10.8)
[2022-12-30 07:07] LABS: BUN Creatinine Ratio 19.8 (10-20); Creatinine Clr Calc Pharmacy 88.1 ml/min; Est GFR (African American) 97.1 ml/min; Est GFR (Non-African American) 83.8 ml/min; Potassium 4.7 mmol/L (3.5-5.1)
[2022-12-30] MEDS ORDERED: lisinopril 20 MG TAB PO SCH (09:00)
[2022-12-30] MEDS ORDERED: NON-FORMULARY MEDICATION (Potassium 99 mg Tablet) PO SCH (09:00)
[2022-12-30] MEDS ORDERED: MAGNESIUM OXIDE 400 MG TAB PO SCH (09:00)
[2022-12-30] MEDS ORDERED: dexAMETHasone 6 MG in SYRINGE 0 ML IV SCH (09:00)
[2022-12-30] MEDS ORDERED: NON-FORMULARY MEDICATION (Calcium 600 mg Capsule) PO SCH (09:00)
[2022-12-30] MEDS ORDERED: CHOLECALCIFEROL 5,000 UNITS 125 MCG TAB PO SCH (09:00)
[2022-12-30] MEDS: traMADol HCL 50 MG TABLET PO PRN (11:51)
--- NOTE | 2022-12-30 13:14 | Discharge Summary ---
Date of Service December 30, 2022 Admission HPI Per Admitting Provider This is a 62-year-old male with chronic persistent neck and arm symptoms with failed course of nonoperative care is here for surgical intervention. Principal Diagnosis Cervical spinal stenosis with myeloradiculopathy Discharge Data Allergies Allergy/AdvReac Type Severity Reaction Status Date / Time calcium carbonate Allergy Intermediate RASH Verified 12/29/22 07:06 metoclopramide Allergy Mild HIVES Verified 12/29/22 07:06 red dye Allergy RASH Verified 12/29/22 07:06 (POSSIBLY R/T RED DYE) rosuvastatin AdvReac Intermediate JOINT PAIN Verified 12/29/22 07:06 Procedures Performed Operation Date: 12/29/22 07:45 Actual Procedures p C3-C4 Anterior Cervical Discectomy and Fusion, Spinal Cord Monitoring(Not Applicable) - Herve Wolfe DO Ordered Studies 12/29/22 07:45 [place] cervical 2-3V Routine Hospital Course (1) Cervical stenosis of spinal canal: Patient went anterior cervical discectomy and fusion tolerated this well was taken to orthopedic for postoperative. Postop day 1 and swallowing well. No hoarseness. Arm symptoms improved. Up and ambulating without difficulty. KAYDEN drain decreasing appropriately. Excellent strength testing. Subsequent discharge home. Discharge orders instructions from the chart for further review. Total Time Total Time Spent Total Time Spent (In Minutes): 20 minutes Discharge Plan Discharge Items Patient Disposition: Home - Self-Care Reason For Visit: Spinal Stenosis, Cervical Region Discharge Diagnosis: Cervical myeloradiculopathy Activity: As commented below Non-emergency contact: Primary Care Provider Call non-emergency contact if: you have any medication questions Follow-up/Referrals: Kelly Valle MD [Primary Care Provider] - Diet: Regular Addtl Attending Provider Instructions: ACTIVITY RECOMMENDATIONS: SELF CARE INSTRUCTIONS AFTER CERVICAL FUSIONS 1. No smoking. Smoking drastically decreases the chance of a solid fusion. 2. No bending, lifting more than 5 pounds, or twisting (roll like a log when turning in bed). 3. You may shower 3 days after surgery. Thoroughly dry wound. Do not soak in the tub. 4. Cervical collar: Must be worn at all times including sleeping. You may remove the brace only to bath, eat and if you are sitting in a recliner. 5. Please walk as much as you can for exercise. Gradually increase the distance that you walk as your endurance increases. SPECIAL CARE INSTRUCTIONS: VERY IMPORTANT TO READ AND REVIEW A. Do not take any anti-inflammatory medications (i.e. Indocin, Advil, Aspirin, Naprosyn, Aleve, Motrin, etc.) as these may inhibit the chance of a solid fusion. Tylenol is okay to take. B. Your surgical incision has been closed with a cosmetic suture under the skin that will dissolve in about 6 weeks. In 14 days, you can use a pair of clean scissors and cut the suture that is left outside of the skin at the ends of your incision. C. Complications are uncommon, but please contact us if you have any signs or symptoms of: 1. wound infection (fever higher than 102.5 degrees F, redness, separation of wound, drainage, or increasing pain from the incision) 2. blood clots in legs (pain, swelling, redness and warmth in legs) 3. urinary tract infection (fever higher than 102.5 degrees, burning upon urination or increased frequency of urination) 4. nerve problems (inability to walk on your toes or heels, numbness, loss of bowel or bladder control) 5. any other symptoms that concern you. D. Please call the office at if you have any concerns or questions about your operation or recovery. MANAGING PAIN AFTER SPINAL SURGERY 1. Narcotic medication is intended for short-term use and will be provided for surgical pain. Surgical pain usually lasts for a period of 4-6 weeks. Narcotic medication includes Percocet, Vicodin, Darvocet, Tylenol #3 or Lortab. 2. Longer-term pain is more appropriately treated with non-narcotic medication such as Tylenol ES. 3. Muscle spasm is not appropriately treated with narcotics. Muscle relaxers such as Soma, Flexeril or Skelaxin can be used along with Tylenol ES. 4. Remember that we all live with some "aches and pains". This is not unusual or uncommon after an injury or as we get older. 5. We will provide appropriate medication within the normal guidelines of their prescribed use. We will also be very cautious and aware of potential abuse and extended duration of patients' medication needs. 6. Please allow 2-3 days to process refills. Prescriptions will not be mailed but must be picked up at the office. FOLLOW UP VISIT: Keep your scheduled follow-up appointment. Any questions, please call the office at . Pending Studies at Discharge: No Stand-Alone Forms: [facility], Smoking Cessation Medications and DC Order Prescriptions: New tramadol 50 mg tablet 50 mg PO Q6H PRN (Reason: pain, moderate) Qty: 30 0RF oxycodone 5 mg tablet 5 mg PO Q6H PRN (Reason: pain, severe) Qty: 20 0RF Continued calcium 600 mg Capsule 600 mg PO QAM loperamide 2 mg Capsule 2 mg PO Q4H PRN (Reason: diarhea) Rx Instructions: administer after each loose stool until symptoms controlled; do not exceed 8 mg per 24 hrs lisinopril 20 mg Tablet 20 mg PO QAM sertraline 100 mg Tablet 100 mg PO HS potassium 99 mg Tablet 99 mg PO QAM betamethasone dipropionate 0.05 % Cream 1 applic TOPICAL BID PRN (Reason: sores. ) zinc 50 mg Tablet 50 mg PO DAILY magnesium 200 mg Tablet 600 mg PO QAM cholecalciferol (vitamin D3) [Vitamin D3] 125 mcg (5,000 unit) Tablet 125 mcg PO QAM Discharge Orders: Discharge Order (Routine); Ordered 12/30/22 Ordered By: Herve Canseco/Other Patient Handouts: Anatomy of a Normal Spine, Cervical Disk Problems, Cervical Spine Tx Admission Data Admit Date/Time: 12/29/22 09:27 Attending Provider: Herve Wolfe Admit Provider: Herve Wolfe Primary Care Provider: Kelly Valle V. Other Interventions: Discharge Summary Assessment (RN) Last Done: 12/30/22 11:25
== END 2022-12-30 12:00 | disposition home or self-care (01) | DRG 473 ==
LOC: ASU 06:49 → 3E 09:27
DX: Z91.09 Other allergy status, other than to drugs and biological substances; F41.9 Anxiety disorder, unspecified; M48.02 Spinal stenosis, cervical region; M54.12 Radiculopathy, cervical region; Z79.899 Other long term (current) drug therapy; F17.200 Nicotine dependence, unspecified, uncomplicated; Z88.8 Allergy status to other drugs, medicaments and biological substances; I10 Essential (primary) hypertension